=== PATIENT | female | born 1970 | race Caucasian/White ===

== ENCOUNTER 2020-04-11 12:25 | Emergency (ER) | payer OTHER, SELFPAY ==
[2020-04-11] VITALS (8 sets, daily range): BP systolic 127–152; BP diastolic 79–112; PULSE 73–84; RESP 18–20; TEMP 36.5; O2SAT 99–100
--- NOTE | ~2020-04-11 | CT_ITS ---
EXAMINATION: CT abdomen pelvis wo con DATE: 04/11/2020 13:54 INDICATION: Left flank pain TECHNIQUE: Computed tomography (CT) of the abdomen and pelvis was performed without intravenous contr ast. The dose-length product (DLP) was 1462.82 mGy-cm. Automated exposure control and iterative recon struction technique were employed. COMPARISON: None FINDINGS: Minimal dependent atelectasis is present in the lung bases. The heart size is normal. The l iver, spleen, pancreas, gallbladder, and right adrenal gland are normal. There is diffuse thickening of the left adrenal gland which maintains its adreniform shape. The right kidney is absent. The left kidney is unremarkable. No stones are identified in the left kidney, the ureter, or the bladder. Ther e is no hydronephrosis or hydroureter. No pathologically enlarged abdominal or pelvic lymph nodes are identified. There is no free intraperitoneal gas or evidence of bowel obstruction. There are changes of mesh ventral hernia repair. Mild lumbar spondylosis is noted. IMPRESSION: 1. No CT correlate for the patient's symptoms. Reviewed, dictated and finalized at location A. SCAPE CREW MEMBER
--- NOTE | ~2020-04-11 | XR_ITS ---
EXAMINATION: XR chest 2V DATE: 04/11/2020 13:15 INDICATION: Weakness. Swelling of the legs. Left flank pain. TECHNIQUE: Frontal and lateral views of the chest were obtained. COMPARISON: None. FINDINGS: The chest demonstrates clear lungs without pneumonia, pleural effusion, or pneumothorax. Th e heart size is normal. IMPRESSION: 1. No acute cardiopulmonary disease. Reviewed, dictated and finalized at location A. T SCIENTIST
--- NOTE | ~2020-04-11 | CT_ITS ---
EXAMINATION: CT brain wo con DATE: 04/11/2020 13:54 INDICATION: Dizziness. TECHNIQUE: Computed tomography (CT) of the head was performed without intravenous contrast. The mA wa s adjusted according to patient size. Iterative reconstruction technique was employed. The dose-lengt h product was 605.33 mGy-cm. COMPARISON: None FINDINGS: There is no intracranial hemorrhage, acute infarction, or abnormal intracranial mass lesion . There are scattered areas of low attenuation in the cerebral white matter. The ventricles are evan l in size. The orbits are normal. There is mucosal thickening in the paranasal sinuses. There is a ri ght mastoid effusion. IMPRESSION: 1. Mild nonspecific cerebral white matter disease, which likely represents chronic small vessel ische yang disease. Reviewed, dictated and finalized at location A. [place] ASSET PROTECTION SPECIALIST IMPRESSION: 1. Mild nonspecific cerebral white matter disease, which likely represents diamond die polisher kevin small vessel ischemic disease.
--- NOTE | ~2020-04-11 | XR_ITS ---
EXAMINATION: XR abdomen/kub 1V INDICATION: Left flank pain TECHNIQUE: Supine views of the abdomen were obtained on 2 radiographs. COMPARISON: CT from today FINDINGS: The bowel gas pattern is normal. No urolithiasis is identified. There are no dilated loops of bowel. Changes of mesh ventral hernia repair are noted. Multiple phleboliths are present in the pe lvis. There is mild osteoarthritis of the hips. IMPRESSION: 1. No urolithiasis identified. Reviewed, dictated and finalized at location A. IC SERVICES LIBRARIAN
--- NOTE | 2020-04-11 12:51 | ECG_ITS ---
Measurements Intervals [place] Rate: 79 P: 56 [place]: 138 QRS: 56 QRSD: 81 T: 138 QT: 409 QTc: 470 Interpretive Statements SINUS RHYTHM LOW QRS VOLTAGE IN PRECORDIAL LEADS ST-T WAVE ABNORMALITY IN ANTEROLATERAL LEADS- CONSIDER ISCHEMIA BASELINE WANDER- AVR, AVL, AVF, V2-V6 ABNORMAL ECG Electronically Signed On 04-11-2020 13:07:43 INVESTOR RELATIONS COORDINATOR by Vasu Lauren D.O.
[2020-04-11 13:02] LABS: Basophils Absolute Auto 0.1 K/mm3 (0.0-0.1); Basophils Percent Auto 1.2 % (0.2-1.2); Eosinophils Absolute Auto 0.4 K/mm3 (0-0.3); Eosinophils Percent Auto 4.9 % (0-4.4); Hematocrit 45.5 % (37.0-47.0); Hemoglobin 14.3 g/dL (12.0-15.0); Immature Granulocyte Absolute 0.05 K/mm3 (0.00-0.031); Immature Granulocyte Percent A 0.6 % (0-0.5); Lymphocytes Absolute Auto 4.07 K/mm3 (0.9-3.2); Lymphocytes Percent Auto 47.1 % (18.3-44.2); Mean Corpuscular HGB Conc 31.4 g/dl (32-36); Mean Corpuscular Hemoglobin 28.1 pg (26-34); Mean Corpuscular Volume 89.4 fl (80-100); Monocytes Absolute Auto 0.4 K/mm3 (0.1-0.6); Monocytes Percent Auto 4.1 % (2.6-8.5); Neutrophils Absolute Auto 3.7 K/mm3 (1.3-6.7); Neutrophils Percent Auto 42.1 % (45.5-73.1); Platelet Count Result 296 k/mm3 (150-375); Red Blood Count 5.09 M/mm3 (4.2-5.4); Red Cell Distribution Width 16.4 % (11.5-14.5); White Blood Count 8.6 K/mm3 (4.5-10.0)
[2020-04-11 13:07] LABS: Add Urine Microscopic? YES; Appearance Urine Cloudy (Clear); Bacteria Urine 1+ /hpf; Bilirubin Urine Negative (Negative); Blood Urine 1+ (Negative); Color Urine Yellow (Yellow); Glucose Urine UA Negative (Negative); Ketones Urine Negative (Negative); Leukocyte Esterase Ur 3+ LEU/UL (Negative); Mucus Urine Rare /lpf; Nitrate Urine Negative (Negative); Protein Urine Negative (Negative); Specific Grav Ur 1.009 (1.001-1.035); Squamous Epithelial Cell Urine Many /hpf (Few); Urobilinogen Urine Negative mg/dL (<2.0); WBC Urine >75 /hpf
[2020-04-11 13:22] LABS: Alanine Aminotransferase 47 U/L (4-35); Albumin Level 4.6 g/dL (3.5-5.1); Alkaline Phosphatase 112 U/L (38-126); Anion Gap 7 mmol/L (8-16); Aspartate Amino Transferase 54 U/L (14-36); Bilirubin,Total 0.4 mg/dL (0.2-1.3); Blood Urea Nitrogen 11 mg/dL (7-17); Calcium 9.2 mg/dL (8.4-10.2); Carbon Dioxide 31 mmol/L (22-30); Chloride 101 mmol/L (98-107); Estimated CRCL calculation 63 ml/min; Estimated Glomerular Filt Rate 52; Glucose 111 mg/dL (65-105); Potassium 3.3 mmol/L (3.4-5.0); Sodium 139 mmol/L (137-145)
--- NOTE | 2020-04-11 13:29 | ED.GENADULT ---
HPI - General Adult General Chief complaint: Weakness Stated complaint: Swellling, Hematuria, Abd pain Time Seen by Provider: 04/11/20 13:09 Source: patient Mode of arrival: ambulatory Limitations: no limitations History of Present Illness HPI narrative: This patient is a 50 year old female with history of hypothyroid and anxiety who presents for evaluation left flank pain and weakness. Patient reports she has been having intermittent left flank pain that radiates to left lower abdomen. She also reports intermittent hematuria. She reports she had a fever 1 week ago but she has not measured a fever since. She also reports facial swelling and weakness. She reports she has not been on her thyroid medication for 6 months because she does not have insurance. She also reports she moved her from [place] 4 days ago. She states she was made to come to ER because she has fallen twice because of dizziness when walking. Her family at bedside states she seems like she is drunk when she is walking. Related Data Allergies Allergy/AdvReac Type Severity Reaction Status Date / Time amitriptyline [From Elavil] Allergy Hives Verified 04/11/20 13:34 Review of Systems Review of Systems: All systems reviewed & are unremarkable except as noted in HPI and below Constitutional: Constitutional: Denies chills and Reports fever(s) Cardiovascular: Cardiovascular: Denies chest pain Gastrointestinal: Gastrointestinal: Reports abdominal pain and Reports nausea Genitourinary: Genitourinary: Reports hematuria and Reports flank pain Neurologic: Reports dizziness and Reports weakness PMFSH Past Medical History Medical History (Updated 04/11/20 @ 16:26 by Tricia Lopez MD) Hypothyroid Surgical History Surgical History (Updated 04/11/20 @ 13:40 by Tricia Lopez MD) H/O: hysterectomy Hx of hernia repair Social History Social History (Updated 04/11/20 @ 13:40 by Tricia Lopez MD) Smoking packs per day: 0.5 Smoking cigarettes per day: 10.0 Smoking status: Current every day smoker Gender identity (if verbalized by the patient): Female Exam Const: General: no acute distress, alert and ill appearing Nutritional Appearance: obese Orientation/consciousness: patient oriented x3 HENMT: Head: normocephalic and atraumatic Ears: TM's normal bilaterally Face and sinus: face symmetric and edema bilaterally Eyes: Pupils: Equal, round and reactive pupils present EOM: EOMs intact bilaterally Other: periorbital edema Resp: Effort & Inspection: normal respiratory effort, no retractions and no use of accessory muscles Auscultation: clear to auscultation bilaterally Cardio: Rate: regular rate Rhythm: regular rhythm Heart sounds: no murmurs GI: GI Palp: Yes Soft to palpation, No Tenderness to palpation present (GI) and No Guarding due to palpation present (GI) Auscultation: normal bowel sounds Skin: General skin exam: normal color Rashes: no rashes Neuro: General: patient oriented x3, moves all extremities, no meningeal signs and no focal motor deficits Other: patient appeared slightly unsteady while walking Extrem: General: edema Psych: Mental Status: mental status grossly normal Affect: normal affect Course Reevaluation(s) Reevaluation #1: I discussed with patient that she needs to be admitted to hospital . I explained that if her thyroid is not treated that she could go into a coma a . Patient states she does not want to stay. I explained that she really needs to take her medications. Date: 04/11/20 Time: 15:58 Consultations Consultation #1: I Discussed with patient that her thyroid hormones are extremely low. I discussed I am concerned that she appears to need assistance walking and I recommended patient needs to be admitted. Danika Watts, spoke with her attending who accepts patient to observation Date: 04/11/20 Time: 15:06 Consultation #2: I called Dr. Vizcarra who is the environmental engineering manager physician. I reviewed
[2020-04-11] MEDS: MORPHINE SULFATE (*CRX) 4 MG/ML INJ IV PUSH (13:43)
[2020-04-11] MEDS: ONDANSETRON INJ 4 MG/2 ML VIAL IV PUSH (13:44)
--- NOTE | 2020-04-11 14:33 | PCCCNOTE ---
04/11/20 1430 Met with pt and ; pt and have no resources; no insurance or way to get medicine, currently living in shed in brother in law house; it has space heater but no plumbing. Pt newly up from [place] in past 4 days. [facility] contacted and informed of pt situation. [facility]ri[facility] Davila stated that they would speak with pt and to see what services could be offered.
[2020-04-11] MEDS: POTASSIUM CHLORIDE 20 MEQ TABLET 40 MEQ PO (14:42)
[2020-04-11] MEDS: LEVOTHYROXINE SODIUM 100 MCG TABLET 400 MCG PO (14:42)
[2020-04-11 14:54] LABS: Thyroid Stimulating Hormone Reflex > 100.000 uIU/mL (0.465-4.68)
[2020-04-11 15:19] LABS: Free T4 Free Thyroxine Reflex < 0.07 ng/dL (0.78-2.19)
--- NOTE | 2020-04-11 16:43 | PCCCNOTE ---
[address] seen pt and evaluated pt; was able to get her a medical card and medicaid pending
== END 2020-04-11 16:58 | disposition left against medical advice (07) ==
PROVIDERS: Emergency Medicine; Emergency Provider General Practice
DX: E03.9 Hypothyroidism, unspecified (principal); N39.0 Urinary tract infection, site not specified; E87.6 Hypokalemia; R26.81 Unsteadiness on feet; F17.210 Nicotine dependence, cigarettes, uncomplicated; R90.82 White matter disease, unspecified; Z91.120 Patient's intentional underdosing of medication regimen due to financial hardship
CPT/HCPCS: 36415; 70450; 71046; 74018; 74176; 80053; 81001; 84439; 84443; 85025; 87086; 87088; 93005; 96365; 96375; 99284; A9270; J0696; J2270; J2405

== ENCOUNTER 2022-08-22 15:40 | Emergency (ER) | payer OTHER, SELFPAY ==
[2022-08-22 15:43] VITALS: BP 143/93; PULSE 116; RESP 16; TEMP 37.1; O2SAT 98
--- NOTE | 2022-08-22 16:02 | PC.NURSE ---
No answer when called to go to exam room.
--- NOTE | 2022-08-22 16:13 | PC.NURSE ---
multiple calls for bed placement. pt not found in waiting area, or bathroom.
== END 2022-08-22 16:13 | disposition left against medical advice (07) ==
LOC: ANHED 16:23
DX: Z76.0 Encounter for issue of repeat prescription (principal)
CPT/HCPCS: 99199

== ENCOUNTER 2022-08-28 12:25 | Emergency (ER) | payer OTHER, SELFPAY ==
[2022-08-28 12:31] VITALS: BP 123/70; PULSE 100; RESP 16; TEMP 36.4; O2SAT 97
--- NOTE | 2022-08-28 13:08 | ED.RECABL ---
HPI - Recheck/Abnormal Lab/Rx General Chief Complaint: Recheck/Abnormal Lab/Rx Stated Complaint: med refill Time Seen by Provider: 08/28/22 12:45 History of Present Illness HPI narrative: Patient is a 52-year-old female with a history of anxiety, hypothyroidism presenting for medication refill. Patient states that she recently moved back here from [place]. States that she has an appointment with a new PCP in 5 days. States that she is out of her levothyroxine and alprazolam. States that she has been on alprazolam 1 mg 4 times daily for years. States that she has had seizures from withdrawal in the past. States that her last dose was yesterday. She denies SI or HI. She denies any pain. Denies further complaints. Related Data Home Medications Medication Instructions Recorded Confirmed levothyroxine 200 mcg tablet 200 mcg PO DAILY 08/28/22 (Synthroid) Allergies Allergy/AdvReac Type Severity Reaction Status Date / Time amitriptyline [From Elavil] Allergy Hives Verified 08/28/22 12:46 Review of Systems Review of Systems: All systems reviewed & are unremarkable except as noted in HPI and below PMFSH Past Medical History Medical History Hypothyroid Surgical History Surgical History H/O: hysterectomy Hx of hernia repair Social History Social History Smoking packs per day: 0.5 Smoking cigarettes per day: 10.0 Smoking status: Current every day smoker Gender identity (if verbalized by the patient): Female Exam Narrative: GENERAL: Well-appearing, well-nourished, and in no acute distress. Pleasant and cooperative HEAD: Normocephalic, atraumatic. EYES: PERRLA and EOMI. ENT: Nares clear, no rhinorrhea or epistaxis. Mucous membranes moist. NECK: Supple. CHEST: No respiratory distress. HEART: Regular rate and rhythm. ABDOMEN: nondistended EXTREMITIES: Normal range of motion. No edema. SKIN: Warm, dry, no rash. NEURO: No focal deficits. Alert and oriented x3. PSYCH: Normal mood and affect. No SI/HI Course Vital Signs Vital signs: Vital Signs Temperature 97.6 F 08/28/22 12:31 Pulse Rate 100 08/28/22 12:31 Respiratory Rate 16 08/28/22 12:31 Blood Pressure 123/70 08/28/22 12:31 Pulse Oximetry 97 08/28/22 12:31 Oxygen Delivery Room Air 08/28/22 12:31 Temperature 97.6 F 08/28/22 12:31 Pulse Rate 100 08/28/22 12:31 Respiratory Rate 16 08/28/22 12:31 Blood Pressure 123/70 08/28/22 12:31 Pulse Oximetry 97 08/28/22 12:31 Oxygen Delivery Room Air 08/28/22 12:31 MDM - Recheck/Abnormal Lab/Rx MDM Narrative Medical decision making narrative: Patient is a 52-year-old female presenting for medication refill. Vitals are within normal limits. Patient is well-appearing and in no acute distress. Exam remarkable for the above. We will give the patient a dose of levothyroxine and Xanax while here. Discussed with the patient that alprazolam is a controlled substance but I will provide a short course to get her through until her PCP appointment later this week. We will also give her 10 days worth of levothyroxine. Appropriate return precautions were given. Patient voiced understanding and is agreeable with plan. Discharged in stable condition. Differential Diagnosis Differential diagnosis: Likely encounter for medication refill Medical Records Attestation: I reviewed the patient's medical records. Critical Care Time Critical Care Time Critical Care Time: No Discharge Plan Discharge Clinical Impression: Encounter for medication refill, Anxiety, Hypothyroidism Patient Disposition: Home, Self-Care Condition: Stable Instructions: Antibiotic Form, Hypothyroidism (ED), Anxiety (ED) Additional Instructions: Please follow-up closely with your PCP as scheduled. If you deve
[2022-08-28] MEDS: LEVOTHYROXINE SODIUM 100 MCG TABLET 200 MCG PO (13:23)
[2022-08-28] MEDS: ALPRAZolam (*CRX) 0.5 MG TABLET 1 MG PO (13:23)
== END 2022-08-28 13:27 | disposition home or self-care (01) ==
PROVIDERS: Emergency Provider Emergency Medicine; PCP Internal Medicine
DX: E03.9 Hypothyroidism, unspecified (principal); F41.9 Anxiety disorder, unspecified; Z90.710 Acquired absence of both cervix and uterus; F17.210 Nicotine dependence, cigarettes, uncomplicated
CPT/HCPCS: 99281; A9270